=== PATIENT | male | born 1975 | race Caucasian/White ===

== ENCOUNTER 2016-10-23 03:39 | Emergency (ER) | payer OTHER ==
[~2016-10-23 03:39] MED LIST: ACETAMINOPHEN PO; ALBUTEROL17 GM INH; ANTIVERT PO; ASPIRIN PO; ATENOLOL PO; ATIVAN PO; BACTRIM DS TABL1 TA1 PO; BACTRIM DS TABL1 TA2 PO; BYSTOLIC10 MG PO; CATAPRES0.1 M1 PO; CELEXA20 MG PO; CIPRO PO; CLEOCIN PO; CLINDAMYCIN HC300 MG PO; CYMBALTA30 MG PO; FLEXERIL PO; FLONASE 0.05% N16 G1; HIBICLENS 4% L120 ML TOP; IBUPROFEN; IBUPROFEN PO; IBUPROFEN800 MG PO; LINZESS290 MCG PO; LORTAB 10-5001 EACH PO; LOVASTATIN20 M1 PO; NORCO1 TAB 10/3 PO; NORVASC PO; PENICILLIN; PEPCID AC20 M2 PO; ROBAXIN 750750 M1 PO; SKELAXIN PO; SUBOXONE 8 MG-1 EAC1 SL; VIBRAMYCIN100 M1 PO; VICODIN 5/500 T1 TAB PO; VOLTAREN75 MG PO
[2016-10-23 04:18] LABS: BASOPHIL% 0.4 % (0-2.5); EOSINOPHIL# 0.3 X10e3 (0-0.7); EOSINOPHIL% 3.1 % (0.0-7.0); HEMATOCRIT 51.7 % (38.0-50.0); HEMOGLOBIN 17.7 gm/dL (13.0-16.0); LYMPHOCYTE# 3.2 X10e3 (1.0-3.5); MEAN CELL VOLUME 86.1 FL (83-96); MEAN CORPUSCULAR HEMOGLOBIN 29.4 PG (28-34); MEAN CORPUSCULAR HGB CONC 34.2 g/dL (30-36); MONOCYTE# 0.8 X10e3 (0-1.0); MONOCYTE% 8.8 % (3.0-12.0); NEUTROPHIL% 53.7 % (40-75); PLATELET COUNT 232 X10e3 (140-420); RED CELL DISTRIBUTION WIDTH 13.8 % (11.0-15.5); WHITE BLOOD COUNT 9.3 X10e3 (4.0-10.5)
[2016-10-23 04:19] LABS: DIFF IND NO
[2016-10-23 04:34] LABS: BUN/CREATININE RATIO 12.22; CALCIUM SERUM 9.9 mg/dL (8.4-10.2); CREATININE SERUM 0.9 mg/dL (0.6-1.4); POTASSIUM 4.3 mmol/L (3.5-5.1)
[2017-04-12] MEDS ORDERED: NEURONTIN600 MG PO (22:42)
[2017-04-12] MEDS ORDERED: XANAX0.5 MG PO (22:43)
[2017-04-12] MEDS ORDERED: GLUCOPHAGE500 MG PO (22:43)
[2017-04-12] MEDS ORDERED: INSULIN (22:43)
== END 2016-10-23 06:44 | disposition home or self-care (01) ==
LOC: SED 03:39
PROVIDERS: Emergency Medicine
DX: T81.4XXA Infection following a procedure, initial encounter (principal); E11.65 Type 2 diabetes mellitus with hyperglycemia; E78.5 Hyperlipidemia, unspecified; F41.9 Anxiety disorder, unspecified; F17.200 Nicotine dependence, unspecified, uncomplicated
CPT/HCPCS: 36415; 80048; 85025; 96361; 96365; 96375; 99284; J1885

== ENCOUNTER 2016-12-19 19:54 | Emergency (ER) | payer OTHER ==
--- NOTE | ~2016-12-19 | EKG ---
PATIENT: MARISELA BLACKMAN UNIT #: [id number] Ventricular Rate: 116 BPM Atrial Rate: 116 BPM P-R Interval: 140 ms QRS Duration: 96 ms Q-T Interval: 322 ms QTC Calculation(Bezet): 447 ms P [place]: 38 degrees Calculated R [place]: 53 degrees Calculated T [place]: 0 degrees Diagnosis Line: Sinus tachycardia Diagnosis Line: Otherwise normal ECG Diagnosis Line: When compared with ECG of 18-MAY-2016 00:26, Diagnosis Line: No significant change was found Diagnosis Line: Confirmed by DEVONTE TOBIAS MD ([id number]) on Diagnosis Line: 12/20/2016 3:41:18 PM INTERPRETING MD: JATINDER CHACON
[2016-12-19 20:50] LABS: BASOPHIL% 0.4 % (0-2.5); EOSINOPHIL# 0.2 X10e3 (0-0.7); EOSINOPHIL% 2.7 % (0.0-7.0); HEMATOCRIT 48.1 % (38.0-50.0); HEMOGLOBIN 16.3 gm/dL (13.0-16.0); LYMPHOCYTE# 2.1 X10e3 (1.0-3.5); LYMPHOCYTE% 26.4 % (17.0-45.0); MEAN CELL VOLUME 86.6 FL (83-96); MEAN CORPUSCULAR HEMOGLOBIN 29.4 PG (28-34); MONOCYTE# 0.7 X10e3 (0-1.0); MONOCYTE% 8.3 % (3.0-12.0); NEUTROPHIL% 62.2 % (40-75); PLATELET COUNT 249 X10e3 (140-420); RED BLOOD COUNT 5.56 X10e (3.90-5.60); RED CELL DISTRIBUTION WIDTH 13.8 % (11.0-15.5); WHITE BLOOD COUNT 8.1 X10e3 (4.0-10.5)
[2016-12-19 20:52] LABS: DIFF IND YES
[2016-12-19 20:53] LABS: POC - CKMB <1.0 ng/mL (0.0-7.9); POC - TROPONIN <0.05 ng/mL (<=0.05)
[2016-12-19 21:00] LABS: CALCIUM SERUM 9.4 mg/dL (8.4-10.2); CREATININE SERUM 0.9 mg/dL (0.6-1.4); POTASSIUM 4.3 mmol/L (3.5-5.1)
[2016-12-19 21:08] LABS: DIFFERENTIAL COMMENT Y; PLATELET ESTIMATE NORMAL (NORMAL)
[2017-04-12] MEDS ORDERED: NEURONTIN600 MG PO (22:42)
[2017-04-12] MEDS ORDERED: XANAX0.5 MG PO (22:43)
[2017-04-12] MEDS ORDERED: GLUCOPHAGE500 MG PO (22:43)
[2017-04-12] MEDS ORDERED: INSULIN (22:43)
== END 2016-12-19 21:23 | disposition home or self-care (01) ==
LOC: SED 19:54
PROVIDERS: Emergency Medicine
DX: S43.422A Sprain of left rotator cuff capsule, initial encounter (principal); E11.65 Type 2 diabetes mellitus with hyperglycemia; J45.909 Unspecified asthma, uncomplicated; F41.9 Anxiety disorder, unspecified; Z79.899 Other long term (current) drug therapy; F17.200 Nicotine dependence, unspecified, uncomplicated; X58.XXXA Exposure to other specified factors, initial encounter; Y92.830 Public park as the place of occurrence of the external cause
CPT/HCPCS: 36415; 80048; 82553; 84484; 85025; 93005; 96361; 96374; 96375; 99284; J1170; J2405